=== PATIENT | female | born 1980 | race Caucasian/White ===

== ENCOUNTER 2016-07-10 04:02 | Inpatient (IN) | payer BC ==
[~2016-07-10] VITALS: Ht 160 cm; Wt 77.5 kg
[2016-07-10 00:45] VITALS: BP 129/59; PULSE 84; TEMP 37.1; O2SAT 93
[~2016-07-10 04:02] MED LIST: MTR600X PO; OXYC5TAB PO; PRENTAB26 PO
[2016-07-10] MEDS ORDERED: LACTATED RINGER'S 1000ML 1,000 ML IV SCH ×2 (04:45→22:23)
[2016-07-10] MEDS ORDERED: LACTATED RINGER'S 1000ML 1,000 ML IV PRN (04:45)
[2016-07-10] MEDS ORDERED: DOCU-94 PO (06:29)
[2016-07-10 06:36] VITALS: Ht 160 cm; Wt 77.5 kg
[2016-07-10 06:41] LABS: MEAN CELL VOLUME 88.8 fL (80-100); MEAN CORPUSCULAR HGB CONC 34.9 g/dl (32-36); MEAN PLATELET VOLUME 10.8 fL (7.4-10.4); PLATELET COUNT 146 K/uL (130-400); RED BLOOD COUNT 3.94 M/uL (4.2-5.4); WHITE BLOOD COUNT 9.88 K/uL (4.8-10.8)
--- NOTE | 2016-07-10 07:30 | HISTORY & PHYSICAL EXAMINATION ---
DATE OF ADMISSION: 07/10/2016 CHIEF COMPLAINT: Spontaneous rupture of membranes. HISTORY OF PRESENT ILLNESS: The patient is a 36-year-old 5, para 1 at 36 weeks and 3 days' gestation, who presents for a labor and delivery on the morning of 07/10/2016 with rupture of membranes that occurred at 02:00 a.m. with clear amniotic fluid noted. The patient does have a history of a prior section in 2013 secondary to failure to progress. She did reach complete dilation and pushed for 4 hours and delivered via primary section. This has been uncomplicated. We did discuss the risks of a trial of labor after section versus a repeat section along with the risks, benefits and alternatives. After a long discussion, she has opted to proceed with a trial of labor. She is currently 3 cm, 50% effaced, and -3 station. heart tones are category 1. She is GBS negative and she is axel every 2-3 minutes spontaneously. PAST MEDICAL HISTORY: She had 3 spontaneous miscarriages in 2012, 2014 and 2015. She had dilation and evacuations to all 3. PAST SURGICAL HISTORY: She had a breast augmentation in 2011, wisdom teeth removed and D\T\Es x3 and a primary section in December of 2013. SOCIAL HISTORY: The patient denies tobacco, alcohol or drug use. MEDICATIONS: vitamins and Colace 100 mg twice daily. ALLERGIES: No known drug allergies. LABS: Blood type is A positive, group B strep negative, rubella immune, hepatitis B surface antigen negative, RPR nonreactive, and HIV negative. PHYSICAL EXAMINATION: VITAL SIGNS: Blood pressure is 138/82, heart rate is 78, respiratory rate of 18, and temperature of 98.5. GENERAL: The patient is awake, alert and oriented x3. She is no acute distress. HEART: Regular rate and rhythm. LUNGS: Clear to auscultation bilaterally. ABDOMEN: Gravid uterus, appropriate for gestational age. Bowel sounds present x4. EXTREMITIES: No clubbing, cyanosis or calf tenderness. VAGINAL EXAM: She is 3 cm, 50% effaced, and -3 station. The baby was confirmed to be in the vertex position via bedside ultrasound. heart tones are category 1. ASSESSMENT AND PLAN: A 36-year-old 5, para 1 at 36 weeks and 3 days gestation, will be admitted to labor and delivery secondary to spontaneous rupture of membranes. She does have a history of prior section and is opting to proceed with a trial of labor after section. Risks, benefits and alternatives were discussed with the patient. Will augment labor as needed and anticipate vaginal delivery. MTDD
[2016-07-10] MEDS ORDERED: LACTATED RINGER'S 1000ML 500 ML IV PRN ×2 (12:19→16:20)
[2016-07-10] MEDS ORDERED: OXYTOCIN 30 UNITS/500ML NSS IV PRN (12:30)
[2016-07-10] MEDS ORDERED: EpHEDrine SULFATE INJ 50 MG/ML AMP ONE (13:48)
[2016-07-10] MEDS ORDERED: BUPIVACAINE 0.25% 30 ML VIAL ONE ×2 (13:48→18:09)
[2016-07-10] MEDS ORDERED: FENTANYL 2MCG/ML ROPIV 1.25MG/ML 100ML BAG EPI ONE (13:49)
[2016-07-10] MEDS ORDERED: FENTANYL CITRATE INJ 50 MCG/1 ML 2 ML VIAL ONE ×2 (13:49→18:09)
[2016-07-10] MEDS: LACTATED RINGER'S 1000ML 1,000 ML IV SCH ×2 (14:49→17:56)
[2016-07-10] MEDS ORDERED: NALOXONE HCL INJ 1 MG in SODIUM CHLORIDE 0.9% 1000ML 1,000 ML IV PRN (16:20)
[2016-07-10] MEDS ORDERED: DiphenhydrAMINE HCL 50 MG/ML VIAL IV PRN (16:30)
[2016-07-10] MEDS ORDERED: NALOXONE HCL INJ 0.4 MG/1 ML VIAL/CARP IV PRN (16:30)
[2016-07-10] MEDS ORDERED: FENTANYL 2MCG/ML ROPIV 1.25MG/ML 100ML BAG EPI PRN (16:30)
[2016-07-10] MEDS ORDERED: NALBUPHINE HCL INJ 10 MG/ML AMP IV PRN (16:30)
[2016-07-10] MEDS ORDERED: EpHEDrine SULFATE INJ 50 MG/ML AMP IV PRN (16:30)
[2016-07-10] MEDS ORDERED: ONDANSETRON INJ 2 MG/ML 2 ML VIAL IV PRN (16:30)
[2016-07-10] MEDS ORDERED: NURSING VERBAL MED ORDER ONE (18:30)
--- NOTE | 2016-07-10 18:43 | Anesthesiology Progress Note ---
Anesthesia Progress Note Date of Service Jul 10, 2016. Progress Notes Called by nursing 2/2 increasing labor pains. Pt stated having some R sided back and R lower abdominal pain with contractions. I administered 5mL of 0.125% bupivacaine and 50mcg of fentanyl through her epidural. VSS throughout. Pt stated having improved symptoms after medication administration.
[2016-07-10] MEDS ORDERED: AMPICILLIN INJ 2,000 MG in SODIUM CHLORIDE 0.9% 50ML 50 ML IV SCH (20:30)
[2016-07-10] MEDS: AMPICILLIN IV 2,000 MG in SODIUM CHLOR 0.9% AD-VAN 100ML 100 ML IV SCH (20:31)
[2016-07-10] MEDS ORDERED: CITRIC ACID/SODIUM CITRATE 15 ML UDC ONE (20:50)
[2016-07-10] MEDS ORDERED: GENTAMICIN INJ 100 MG in DEXTROSE 5% 100ML 100 ML IV ONE (21:00)
[2016-07-10] MEDS ORDERED: OXYTOCIN INJ 10 UNITS/ML VIAL ONE (21:16)
[2016-07-10] MEDS ORDERED: LIDOCAINE/EPINEPHRINE 2% 1:200,000 20 ML SDV ONE (21:16)
[2016-07-10] MEDS ORDERED: MoRPHine SULFATE PF 1 MG/ML 10 ML AMP/VIAL ONE (21:22)
[2016-07-10] MEDS ORDERED: ONDANSETRON INJ 2 MG/ML 2 ML VIAL ONE (21:24)
--- NOTE | 2016-07-10 22:21 | Anesthesiology Progress Note ---
Anesthesia Post Op Note Date & Time Jul 10, 2016 at 22:21 Vital Signs Pain Intensity: 0.0 Notes Mental Status: alert / awake / arousable, participated in evaluation Pt Amnestic to Procedure: Yes Nausea / Vomiting: adequately controlled Pain: adequately controlled Airway Patency, RR, SpO2: stable & adequate BP & HR: stable & adequate Hydration State: stable & adequate Neuraxial Anesthesia: was administered, sensory block is resolving Anesthetic Complications: no major complications apparent
--- NOTE | 2016-07-10 22:27 | [facility] Post Operative Brief Note ---
Immediate Operative Summary Operative Date Jul 10, 2016. Pre-Operative Diagnosis IUP; Failed ; arrest of descent; tachycardia Post-Operative Diagnosis Same Procedure(s) Performed Repeat caesarean section Delivery of live male child at [address] Corona Cash Applications Clerk Surgeon(s) Dr. Gordon Estimated Blood Loss 700cc Findings Male , apgars 8/10 Fluids (cc crystalloids) 200 ml LR Specimens Cord blood gases Placenta-exam Drains Guan 50 ml Anesthesia Epidural, Dr. Ingram Complication(s) None Disposition L&D
[2016-07-10] MEDS ORDERED: SUPERCREAM 0.870 % 15GM JAR EXT PRN (22:30)
[2016-07-10] MEDS ORDERED: MEPERIDINE HCL 25 MG/ML CARP IV PRN (22:30)
[2016-07-10] MEDS ORDERED: LANOLIN OINT EXT PRN ×2 (22:30)
[2016-07-10] MEDS ORDERED: HYDROCORTISONE ACETATE 25 MG SUPP PR PRN (22:30)
[2016-07-10] MEDS ORDERED: SENNA 8.6 MG TAB PO PRN (22:30)
[2016-07-10] MEDS ORDERED: MoRPHine SULFATE PF 1 MG/ML 10 ML AMP/VIAL EPI PRN (22:30)
[2016-07-10] MEDS ORDERED: NO NARCOTICS OR SEDATIVES SCH (22:30)
[2016-07-10] MEDS ORDERED: CONTINUE MEDICATION ONE (22:30)
[2016-07-10] MEDS ORDERED: BENZOCAINE 20% AER SPR 82.5 GM CAN EXT PRN (22:30)
[2016-07-10] MEDS ORDERED: MAGNESIUM HYDROXIDE SUSP 30 ML UDC PO PRN (22:30)
[2016-07-10] MEDS ORDERED: KETOROLAC TROMETHAMINE 30 MG/ML VIAL ONE (22:44)
--- NOTE | 2016-07-10 23:49 | OPERATIVE REPORT ---
DATE OF OPERATION: 07/10/2016 PREOPERATIVE DIAGNOSIS: The patient is a 36-year-old G2, P1-0-0-1, at 36 weeks and 3 days of gestation,history of prior Csection, presented with premature rupture of membranes, failed trial of labor after , arrest of descent in second stage, and tachycardia. POSTOPERATIVE DIAGNOSIS: Same. PROCEDURE: Repeat low transverse with Pfannenstiel skin incision. SURGEON: Dr. Dan. IMPLEMENTATION SPECIALIST PAYROLL: Dr. Gordon. ESTIMATED BLOOD LOSS: 700ml FLUIDS: 2000 mL of lactated Ringer's. DRAINS: Guan drained 50 mL of urine. ANESTHESIA: Epidural, Dr. Ingram. COMPLICATIONS: None. FINDINGS: Baby was a viable male infant, Apgars 8 and 10, delivered at 2116, and weight was 2860 grams. Baby was in cephalic presentation with asynclitic presentation. MATERNAL FINDINGS: Normal uterus, fallopian tubes and ovaries. DESCRIPTION OF PROCEDURE: The patient was taken to the operating room where epidural anesthesia was checked to be adequate. She was placed in dorsal supine position with a leftward tilt. She was prepared and draped in usual sterile fashion. A Pfannenstiel skin incision was made from the old scar and carried through to the underlying layer of fascia with Bovie. Fascia was incised in the midline, incision extended laterally with the help of Mendoza scissors. Lower aspect of the fascial incision was grasped with 2 Marky clamps, elevated, underlying rectus muscles were dissected off sharply with Mendoza scissors, and then upper aspect of the fascial incision was grasped with 2 Marky clamps, elevated, underlying rectus muscles were dissected off sharply with Mendoza scissors. Rectus muscles were in midline. Peritoneum was entered bluntly with fingers. Peritoneal incision was extended superiorly and inferiorly with good visualization of the bladder. Bladder blade was inserted. Vesicouterine peritoneum was identified, grasped with pickups, entered sharply with Metzenbaum scissors, and lower uterine segment was thinned but intact. It was incised in a transverse fashion. The incision was extended laterally with the help of fingers. Membranes were ruptured and it was clear fluid. The baby's head was brought from vaginal canal up to the incision, delivered without difficulty. Shoulders were delivered with minimal traction. Mouth and nose were suctioned. Cord was clamped x2 and cut, it was a 3-vessel cord. Then, baby was handed off to the awaiting automotive production worker, Dr. Stewart. Cord gases were obtained. Placenta was delivered manually, it was intact and complete. Uterus was exteriorized, cleared off all clots and debris. Bladder blade was inserted and the incision was checked to be extending minimally toward the lower uterine segment. The corners were identified, grasped with ring graspers, and then incision was repaired with 0 Vicryl in a running locked fashion. There was oozing on the right side of the corner. The bladder was then made sure to be retracted all the way down and then that bleeding was controlled with 0 Vicryl with [id number] stitches x2 and a second imbricating layer was done with 0 Vicryl in a running locked fashion. There was also bleeding on the left of the midline of the incision which was also controlled with 0 Vicryl with [id number] stitches x2 and then excellent hemostasis was achieved. Then, the uterus was anteflexed. Posterior cul-de-sac was identified and it was irrigated with warm normal saline and suctioned. The ureters were visualized and found to be peristalsing normally. The uterus was returned to the abdomen and pelvis was irrigated with warm normal saline and suctioned. Incision was checked to be hemostatic again. Between bladder reflection and the lower uterine segment, a Surgicel was placed to prevent any oozing. Then, parietal peritoneum was reapproximated with 3-0 Vicryl in a running locked fashion and rectus muscles were reapproximated with the same suture in a running fashion. The rectus fascia was reapproximated with 0 Vicryl in a running fashion starting from both corners and meeting in the midline. Subcuticular fat tissue was reapproximated with 3-0 Vicryl in a running fashion. Skin was closed with 4-0 Monocryl in a subcuticular fashion. The patient tolerated the procedure well. Sponge, lap, needle and instrument counts were correct x3. She was given 2 grams of ampicillin and 100 mg of gentamicin before surgery. She was taken to recovery room in stable condition. I attest to the content of the Intraoperative Record and any orders documented therein. Any exceptions are noted below. JOEL
[2016-07-11] VITALS (20 sets, daily range): BP systolic 95–129; BP diastolic 54–69; PULSE 69–85; TEMP 36.5–37.1; O2SAT 93–96
[2016-07-11] MEDS: OXYTOCIN INJ 20 UNITS in LACTATED RINGER'S 1000ML 1,000 ML IV SCH ×2 (00:48→12:11)
[2016-07-11] MEDS: AMPICILLIN IV 2,000 MG in SODIUM CHLOR 0.9% AD-VAN 100ML 100 ML IV SCH ×4 (03:18→20:00)
[2016-07-11] MEDS: KETOROLAC TROMETHAMINE 30 MG/ML VIAL IV. PRN ×2 (05:03→10:44)
[2016-07-11] MEDS: DEXTROSE 5% IV SCH ×3 (06:11→22:33)
[2016-07-11] MEDS: GENTAMICIN IV SCH ×3 (06:11→22:33)
[2016-07-11 07:42] LABS: BASO % 0.2 %; BASO ABS # 0.03 K/uL (0-0.2); COMPLETE YES; EOS % 0.5 %; HEMATOCRIT 30.2 % (37-47); IG% 0.7 %; LYMPH % 11.9 %; LYMPH ABS # 1.56 K/uL (1.2-3.4); MEAN CELL VOLUME 90.7 fL (80-100); MEAN CORPUSCULAR HEMOGLOBIN 31.2 pg (25-34); MEAN CORPUSCULAR HGB CONC 34.4 g/dl (32-36); MEAN PLATELET VOLUME 10.5 fL (7.4-10.4); MONO % 8.9 %; NEUT % 77.8 %; PLATELET COUNT 120 K/uL (130-400); RED BLOOD COUNT 3.33 M/uL (4.2-5.4); WHITE BLOOD COUNT 13.12 K/uL (4.8-10.8)
[2016-07-11] MEDS: FERROUS SULFATE 325 MG TAB PO SCH (08:00)
[2016-07-11] MEDS ORDERED: DOCUSATE SODIUM 100 MG CAP PO SCH (08:00)
[2016-07-11] MEDS: PRENATAL VITAMIN TAB PO SCH (08:00)
--- NOTE | 2016-07-11 08:03 | Surgery Progress Note ---
Surgery Progress Note Date of Service Jul 11, 2016. Subjective Post OP Day: 1 + ambulating, + diet, + feeling well, + flatus, + pain controlled Objective Vital Signs: Date Time Temp Pulse Resp B/P Pulse Ox O2 Delivery O2 Flow Rate FiO2 07/11/16 06:30 20 95 07/11/16 05:45 18 93 07/11/16 04:45 37.1 85 16 102/60 94 Room Air 07/11/16 04:45 16 94 07/11/16 02:45 16 94 07/11/16 01:45 16 94 07/11/16 00:45 37.1 84 18 129/59 93 Room Air 07/11/16 00:45 18 93 07/11/16 00:45 93 Room Air General Appearance: no apparent distress Abdomen: non tender, non distended, soft Incision(s): clean, dry, intact Extremities: non-tender, normal inspection, no pedal edema Laboratory Results: Results Past 24 Hours Test 07/11/16 07:15 Range/Units White Blood Count 13.12 4.8-10.8 K/uL Red Blood Count 3.33 4.2-5.4 M/uL Hemoglobin 10.4 12.0-16.0 g/dL Hematocrit 30.2 37-47 % Mean Corpuscular Volume 90.7 80-100 fL Mean Corpuscular Hemoglobin 31.2 25-34 pg Mean Corpuscular Hemoglobin Concent 34.4 32-36 g/dl Platelet Count 120 130-400 K/uL Mean Platelet Volume 10.5 7.4-10.4 fL Neutrophils (%) (Auto) 77.8 % Lymphocytes (%) (Auto) 11.9 % Monocytes (%) (Auto) 8.9 % Eosinophils (%) (Auto) 0.5 % Basophils (%) (Auto) 0.2 % Neutrophils # (Auto) 10.21 1.4-6.5 K/uL Lymphocytes # (Auto) 1.56 1.2-3.4 K/uL Monocytes # (Auto) 1.17 0.11-0.59 K/uL Eosinophils # (Auto) 0.06 0-0.5 K/uL Basophils # (Auto) 0.03 0-0.2 K/uL RDW Standard Deviation 45.6 36.4-46.3 fL RDW Coefficient of Variation 13.8 11.5-14.5 % Immature Granulocyte % (Auto) 0.7 % Immature Granulocyte # (Auto) 0.09 0.00-0.02 K/uL Assessment & Plan regular diet POD#1 advance diet and care
[2016-07-11 08:11] LABS: CREATININE 0.41 mg/dl (0.60-1.20)
[2016-07-11] MEDS: DOCUSATE SODIUM 100 MG CAP PO SCH ×3 (08:54→19:44)
[2016-07-11] MEDS: SIMETHICONE 80 MG CHEW PO SCH ×4 (08:54→19:44)
[2016-07-11] MEDS ORDERED: DIPHTHERIA/TETANUS/PERTUSSIS 0.5 ML SYR/VIAL IM. ONE (09:00)
[2016-07-11] MEDS ORDERED: MEASLES, MUMPS & RUBELLA VIRUS VIAL SQ. ONE (09:00)
[2016-07-11] MEDS ORDERED: GENTAMICIN CONSULT ACTIVE PRN (09:45)
--- NOTE | 2016-07-11 09:53 | Pharmacy Progress Note ---
Pharmacy Antibiotic Consult Date of Service: Jul 11, 2016. Pharmacy Dosing Scope Pharmacy is consulted to initiate gentamicin IV dosing therapy, order appropriate labs and adjust drug dose/frequency. Subjective The patient is a 36 year old female admitted on Jul 10, 2016 at 04:52. Objective Height (Feet): 5 Height (Inches): 3.00 Weight (Kilograms): 77.500 Lab Results (24hrs): Laboratory Tests Test 07/11/16 07:15 Creatinine 0.41 mg/dl White Blood Count 13.12 K/uL Red Blood Count 3.33 M/uL Hemoglobin 10.4 g/dL Hematocrit 30.2 % Mean Corpuscular Volume 90.7 fL Mean Corpuscular Hemoglobin 31.2 pg Mean Corpuscular Hemoglobin Concent 34.4 g/dl Platelet Count 120 K/uL Mean Platelet Volume 10.5 fL Neutrophils (%) (Auto) 77.8 % Lymphocytes (%) (Auto) 11.9 % Monocytes (%) (Auto) 8.9 % Eosinophils (%) (Auto) 0.5 % Basophils (%) (Auto) 0.2 % Neutrophils # (Auto) 10.21 K/uL Lymphocytes # (Auto) 1.56 K/uL Monocytes # (Auto) 1.17 K/uL Eosinophils # (Auto) 0.06 K/uL Basophils # (Auto) 0.03 K/uL Assessment & Plan Patient started on gentamicin for C section procedure ; pharmacy consulted to assist with dosing Gentamicin * Ordered 100 mg x 1 3/2 * Started on conventional AG dosing with gentamicin 95 mg (~1.5 mg/kg - based upon adj BW of 62.4 kg) every 8 hrs * Predicated peak based upon dose is ~5 mcg/ml (goal 5-7) and predicated trough 0.5 mcg/ml (goal <1 mcg/ml) * Estimated kinetics: ke~0.31, Crcl~186 (used 100 ml/min to calculate dose) * If to be continued >48 hrs will consider monitoring peak/trough Pharmacy will continue to follow and will adjust dose/frequency as necessary. Thank you
[2016-07-11] MEDS ORDERED: PROMETHAZINE HCL INJ 25 MG in SODIUM CHLORIDE 0.9% 50ML 50 ML IV PRN (15:30)
[2016-07-11] MEDS ORDERED: MEPERIDINE HCL 50 MG/ML CARP IV PRN (15:30)
[2016-07-11] MEDS ORDERED: MEPERIDINE HCL 75 MG/ML CARP IV PRN (15:30)
[2016-07-11] MEDS ORDERED: DiphenhydrAMINE HCL 50 MG/ML VIAL IV PRN (15:30)
[2016-07-11] MEDS ORDERED: DC INTRASPINAL MORPHINE PRN (15:30)
[2016-07-11] MEDS ORDERED: KETOROLAC TROMETHAMINE 30 MG/ML VIAL IV. PRN (15:30)
[2016-07-11] MEDS ORDERED: ONDANSETRON INJ 2 MG/ML 2 ML VIAL IV PRN (15:30)
[2016-07-11] MEDS ORDERED: ZOLPIDEM TARTRATE 5 MG TAB PO PRN (15:30)
[2016-07-11] MEDS: OXYCODONE/ACETAMINOPHEN 5-325 TAB PO PRN ×2 (15:42→20:18)
[2016-07-11] MEDS: IBUPROFEN 600 MG TAB PO PRN ×2 (15:42→20:17)
[2016-07-11] MEDS ORDERED: MAGNESIUM HYDROXIDE SUSP 30 ML UDC PO SCH (22:00)
[2016-07-11] MEDS ORDERED: BISACODYL 5 MG TABEC PO ONE (22:00)
[2016-07-12 00:10] VITALS: BP 105/57; PULSE 73; TEMP 36.7
[2016-07-12] MEDS: IBUPROFEN 600 MG TAB PO PRN ×4 (00:25→15:34)
[2016-07-12] MEDS: OXYCODONE/ACETAMINOPHEN 5-325 TAB PO PRN ×5 (00:26→19:40)
[2016-07-12] MEDS: AMPICILLIN IV 2,000 MG in SODIUM CHLOR 0.9% AD-VAN 100ML 100 ML IV SCH ×4 (02:19→21:01)
[2016-07-12] MEDS: DEXTROSE 5% IV SCH ×3 (05:51→22:13)
[2016-07-12] MEDS: GENTAMICIN IV SCH ×3 (05:51→22:13)
[2016-07-12 06:31] LABS: HEMATOCRIT 28.2 % (37-47)
[2016-07-12] MEDS: SIMETHICONE 80 MG CHEW PO SCH ×4 (07:35→20:00)
[2016-07-12] MEDS: DOCUSATE SODIUM 100 MG CAP PO SCH ×3 (07:35→19:39)
[2016-07-12] MEDS: PRENATAL VITAMIN TAB PO SCH (07:35)
[2016-07-12] MEDS: FERROUS SULFATE 325 MG TAB PO SCH (07:35)
[2016-07-12 08:30] VITALS: BP 107/59; PULSE 67; TEMP 36.3; O2SAT 97
--- NOTE | 2016-07-12 10:05 | Surgery Progress Note ---
Surgery Progress Note Date of Service Jul 12, 2016. 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, No vomiting Objective Vital Signs: Date Time Temp Pulse Resp B/P Pulse Ox O2 Delivery O2 Flow Rate FiO2 07/12/16 00:10 36.7 73 18 105/57 Room Air 07/12/16 00:10 Room Air 07/11/16 19:30 Room Air 07/11/16 19:30 36.5 75 20 104/69 Room Air 07/11/16 15:45 96 Room Air 07/11/16 15:43 36.7 74 18 96 Room Air 07/11/16 15:30 18 96 07/11/16 14:30 18 96 07/11/16 13:30 18 96 07/11/16 12:30 18 96 07/11/16 11:45 36.7 73 18 95/54 94 Room Air 07/11/16 11:30 18 96 07/11/16 10:30 20 96 General Appearance: WD/WN, no apparent distress Head: normocephalic, atraumatic Neck: supple, no adenopathy, thyroid normal, no JVD, no carotid bruits, trachea midline Respiratory/Chest: chest non-tender, lungs clear, normal breath sounds, no respiratory distress, no accessory muscle use Cardiovascular: regular rate, rhythm, no edema, no gallop, no JVD, no murmur Abdomen: normal bowel sounds, non tender, non distended, soft, no organomegaly , no pulsatile mass Incision(s): clean, dry, intact, no erythema, no drainage Extremities: normal range of motion, non-tender, normal inspection, no pedal edema, no calf tenderness, normal capillary refill, pelvis stable Laboratory Results: Results Past 24 Hours Test 07/12/16 06:13 Range/Units Hemoglobin 9.8 12.0-16.0 g/dL Hematocrit 28.2 37-47 % Assessment & Plan c/sec Day #2 pt doig well anticipate disch tomorrow
[2016-07-12 16:00] VITALS: BP 107/68; PULSE 77; TEMP 36.3; O2SAT 97
[2016-07-12] MEDS ORDERED: BISACODYL 10 MG SUPP PR PRN (22:30)
[2016-07-13] VITALS: BP 112/70; PULSE 76; TEMP 37.1; O2SAT 95
[2016-07-13] MEDS: AMPICILLIN IV 2,000 MG in SODIUM CHLOR 0.9% AD-VAN 100ML 100 ML IV SCH ×2 (02:31→08:02)
[2016-07-13] MEDS: OXYCODONE/ACETAMINOPHEN 5-325 TAB PO PRN ×3 (02:31→12:09)
[2016-07-13] MEDS: DEXTROSE 5% IV SCH (05:59)
[2016-07-13] MEDS: GENTAMICIN IV SCH (05:59)
[2016-07-13] MEDS: IBUPROFEN 600 MG TAB PO PRN ×2 (06:32→12:08)
--- NOTE | 2016-07-13 07:26 | Surgery Progress Note ---
Surgery Progress Note Date of Service Jul 13, 2016. Subjective Post OP Day: 3 + ambulating (+ve ), + diet (+tolerating ), + flatus (+ve ), + pain controlled ( +ve ), No SOB, No bowel movement, No chest pain, No complaints, No nausea, No using SOLE LAYER HAND, No vomiting Objective Vital Signs: Date Time Temp Pulse Resp B/P Pulse Ox O2 Delivery O2 Flow Rate FiO2 07/13/16 00:00 37.1 76 18 112/70 95 Room Air 07/13/16 00:00 95 Room Air 07/12/16 16:00 36.3 77 18 107/68 97 Room Air 07/12/16 16:00 97 Room Air 07/12/16 08:30 36.3 67 18 107/59 97 Room Air 07/12/16 08:30 97 Room Air General Appearance: WD/WN, no apparent distress Head: normocephalic, atraumatic Neck: supple, no adenopathy, thyroid normal, no JVD, no carotid bruits, trachea midline Respiratory/Chest: chest non-tender, lungs clear, normal breath sounds, no respiratory distress, no accessory muscle use Cardiovascular: regular rate, rhythm, no edema, no gallop, no JVD, no murmur Abdomen: normal bowel sounds, non tender, non distended, soft, no organomegaly , no pulsatile mass Incision(s): clean, dry, intact, no erythema, no drainage Extremities: normal range of motion, non-tender, normal inspection, no pedal edema, no calf tenderness, normal capillary refill, pelvis stable Assessment & Plan c/sec Day #3 pt sasha schwarz d/c home with instructions c/sec Day #2 pt sasha schwarz anticipate disch tomorrow
[2016-07-13] MEDS ORDERED: MTR600X PO (07:27)
[2016-07-13] MEDS ORDERED: OXYC-57 PO (07:27)
[2016-07-13] MEDS ORDERED: FRRS300 PO (07:27)
--- NOTE | 2016-07-13 07:29 | Discharge Instructions ---
Discharge Instructions Admission Reason for Admission: LABOR Discharge Discharge Diagnosis / Problem: postop Discharge Goals Goal(s): Routine recovery after surgery Activity Recommendations Activity Limitations: as noted below ACTIVITY RECOMMENDATIONS: * Gradual return to full activity over the next 2-3 weeks. * No lifting - nothing heavier than baby over the next 2-3 weeks. * Do not engage in vigorous exercise, sexual activity or sports until cleared by your physician. * Do not drive or operate any motorized equipment until cleared by your physician. * You may shower/bathe daily. BREAST CARE: If you are not breast feeding: * Wear a supportive bra 24 hours a day for one to two weeks. * Avoid stimulating your breasts and nipples as much as possible during the first few weeks after delivery. * When taking a shower, have the warm water hit your back, not breasts. * When your breasts feel full, apply ice packs. Usually three to four times a day helps ease the discomfort. * Take a mild pain medication (Tylenol/Motrin) when you are uncomfortable. If breast feeding: * Use breast milk to lubricate nipples. Lansinoh cream may be used for sore nipples. You do not need to remove cream prior to breast feeding. If using a different brand of cream, check the label for directions regarding removal of cream prior to nursing. * Wear a supportive bra. * If having problems with breasts or breast feeding, call a healthcare risk control consultant or your health care provider. OVER THE COUNTER MEDICATION: * For discomfort or pain, you may use Acetaminophen (Tylenol), Ibuprofen (Advil ), or Naproxen (Aleve) following the package directions. * For constipation you may use Colace following the package directions. SPECIAL CARE INSTRUCTIONS: When you are discharged from the hospital, it is important for you to follow the instructions listed below: * During the first week at home, you should be able to care for yourself and your baby. In addition, the usual light household activities are encouraged. * Limit your activities to the way you feel. Do not try to clean the house or move furniture. Be sensible. * If you actively engage in sports and have done so up until the time of your delivery, you may resume these activities as soon as you feel able. This may take up to one month or even longer. Use good judgment. * Continue to take your vitamins for at least six weeks after the of your baby. * Your diet need not be limited unless you were on a special diet before your delivery. Breast-feeding mothers need around 2500 calories per day and at least 64-80 ounces of fluid per day (8 to 10 glasses). * You should eat foods from the four major food groups. Crash diets or fad diets are to be avoided. Eating lean meats, fresh fruits and vegetables, low-fat dairy products, high fiber foods and a regular exercise program, will help you get back to your pre- weight without putting your health at risk. * Constipation is sometimes a problem after delivery. Take a mild laxative as needed. If breast feeding, Milk of Magnesia is acceptable to use. You may use a suppository or Fleets enema if no episiotomy. * A daily shower or tub bath is suggested. Be sure to thoroughly and gently dry the perineum. * A bloody vaginal discharge will usually continue until around four weeks post . A small amount of bleeding may continue for as long as six weeks. Vaginal discharge changes from the bright red bleeding after delivery to pink then brownish and finally yellowish-pink before becoming white and disappearing. * Bleeding may increase with activity. Your first period may come in 4-8 weeks. If you are breast feeding, your period may be delayed even longer. * [employer] (sex) can begin whenever both you and your partner feel comfortable and do not have any form of genital infection. It is recommended that you wait at least six weeks for internal and external healing to occur. If you have questions, please talk to your health care practitioner. A condom should be used to prevent infection and . * Foreplay, gentle intercourse and lubrication is very important the first several times to prevent pain. A water-based lubricant such as K-Y jelly or Astroglide may be used. * Tampons and/or Douching should be avoided until after six weeks check-up. * If you have RH negative blood and your baby is RH positive, you will receive RHOGAM by injection prior to discharge. The nurse will give you a card to keep with you that has the date and place that you received RHOGAM after delivery. * During your care, you had a Rubella screen done to check for the presence of rubella antibodies in your blood. If your test was negative, you will receive a Rubella vaccine prior to discharge. This vaccine may cause a fever, soreness at the injection site and flu-like symptoms. If these symptoms persist, notify your health care practitioner. is not advised for three months after a Rubella vaccine. * Verbalizes understanding of car seat law as reviewed with patient nursing. * Car Seat hand-out given and reviewed with patient by nursing. * Shaken baby information reviewed with patient by nursing. Call you doctor if: * Heavy bleeding (saturating several pads an hour) or passing clots the size of your fist. * A fever >101 degrees F (38.3 degrees C) on two occasions four hours apart and /or chills. * Unusual pain in the pelvic or vaginal areas. Pain should improve each day . * Call the doctor for any increased redness, drainage or swelling around the incision and any pain unrelieved by prescribed pain medication. * Any signs or symptoms of phlebitis (possible blood clots forming in the veins ): leg pain, warm, red or swollen area on leg. * "Baby Blues" lasting longer than two weeks. If you have any questions or concerns, call your health care practitioner at . FOLLOW-UP VISIT: * Incision check (staple removal) in 1 week. Please call doctor's office at to set up appointment. * Please call the office at to schedule a 6 week examination. It is important you keep this appointment. * It is important for you to make arrangements for either yearly or twice yearly check-ups thereafter. . Current Hospital Diet Patient's current hospital diet: Regular OB Diet Discharge Diet Recommended Diet: Regular Diet Procedures Procedures Performed: Repeat caesarean section Delivery of live male child at 2116 Pending Studies Studies pending at discharge: no Medical Emergencies . Who to Call and When: Medical Emergencies: If at any time you feel your situation is an emergency, please call [phone] immediately. . Non-Emergent Contact Non-Emergency issues call your: Specialist . . "Provider Documentation" section prepared by Xavier Diaz. VTE Core Measure Inpt VTE Proph given/why not?: Treatment not indicated
[2016-07-13 07:40] VITALS: BP 109/62; PULSE 63; TEMP 36.7
[2016-07-13] MEDS: SIMETHICONE 80 MG CHEW PO SCH (08:02)
[2016-07-13] MEDS: FERROUS SULFATE 325 MG TAB PO SCH (08:02)
[2016-07-13] MEDS: DOCUSATE SODIUM 100 MG CAP PO SCH (08:02)
[2016-07-13] MEDS: PRENATAL VITAMIN TAB PO SCH (08:02)
[2016-07-13 13:00] VITALS: BP_DIAS 62; PULSE 63; TEMP 36.7
--- NOTE | 2016-07-29 12:16 | DISCHARGE SUMMARY ---
DETAILS OF ADMISSION: The patient is a 36-year-old G5, P1-0-0-3-1 at 36 weeks and 3 days of gestation who was admitted on 07/10/2016 for premature rupture of membrane at 2:[address] Stark. She had a history of prior . She decided to try for labor and vaginal after delivery. She proceeded to fully dilation and pushed about 1 hour without any progress and heart rate happened to have tachycardia to 180s and 190s. Decision was made to proceed with repeat low transverse . The patient understood the risks and signed informed consent. The patient has repeat low transverse with Pfannenstiel skin incision. Surgeon myself, assistant project manager Dr. Gordon. See dictated OP note for details. The patient delivered a viable male infant, Apgars 8/9. Weight was 2860 grams. On postop period, the patient was doing well. Vital signs stable, afebrile. Urine output was adequate. On postop day #1 the patient was ambulating, vital signs stable, afebrile. Urine was adequate. The Guan was discontinued. She voided without problems. She ambulated, she passed gas, she tolerated regular diet. Her vital signs were stable, afebrile. Her physical exam was unremarkable. Her incision was clean, dry and intact. Her postop H\T\H was 10.4/30.2. She was continuously monitored. On postop day #2, the patient was doing well, tolerating regular diet and pain was under control with oral medication. Vital signs stable, afebrile. Physical exam was unremarkable. Her incision was clean, dry and intact. Her bleeding was minimal. Her repeat H\T\H was 9.8/28.2. She was continuously monitored. On postop day #3, the patient was doing well, ambulating, tolerating regular diet, no complaints. Vital signs stable, afebrile. Physical exam was unremarkable. Her incision was clean, dry and intact. Her abdomen is soft, nontender. Fundus was firm and bleeding was minimal. The patient desired to go home on postop day #3 07/13/2016. Instructions were given when to call. Prescriptions were written for iron sulfate, ibuprofen and Percocet for pain. She was to continue with Colace and multivitamin. Instructions were given when to call and all questions were answered. JOEL
== END 2016-07-13 13:00 | disposition home or self-care (01) | DRG 766 ==
LOC: C.LD 04:02 → C.OPB 04:02 → C.LD 04:52 → C.OPB 04:52 → C.OBG 07-11 00:44
PROVIDERS: ADMIT Obstetrics & Gynecology; ATTEND Obstetrics & Gynecology
PROC: 10D00Z1 Extraction of Products of Conception, Low, Open Approach (ICD-10-PCS; principal; 2016-07-10 20:53)
DX: O42.013 Preterm premature rupture of membranes, onset of labor within 24 hours of rupture, third trimester (principal); O34.211 Maternal care for low transverse scar from previous cesarean delivery; O62.1 Secondary uterine inertia; Z37.0 Single live birth; O76 Abnormality in fetal heart rate and rhythm complicating labor and delivery; Z3A.36 36 weeks gestation of pregnancy

== ENCOUNTER 2019-05-17 05:29 | Inpatient (IN) ==
--- NOTE | 2019-04-27 13:54 | PAT Medication Instructions ---
Medication Instructions Date of Service April 27, 2019 Home Medications PNV cmb#95-ferrous fumarate-FA [] 1 tab PO QAM docusate sodium [Stool Softener] 100 mg PO HS DO NOT take the morning of surgery PNV cmb#95-ferrous fumarate-FA [] 1 tab PO QAM Take evening before surgery docusate sodium [Stool Softener] 100 mg PO HS Other Notes If you have any questions please call us at [phone] or [phone] or [phone] or [phone]
--- NOTE | 2019-04-28 15:22 | Anesthesiology Consultation ---
Date of Service April 28, 2019 Assessment & Plan (1) Encounter for pre-operative examination: Chart Review Chart Review: Acceptable Risk for Surgery (pending pre op labs ([facility] 04/28)) and Patient seen in Pre Admission Testing Teaching & Discussion Instructed NPO after midnight before surgery, except medications with 15 cc of water. Medication instructions provided according to the PAT guidelines. History Surgery Operation Date: 05/17/19 07:30 Proposed Procedures p Section in LD - Jadon Dan MD Height/Weight Height: 5 ft 3 in Weight: 88.8 kg Allergies Allergy/AdvReac Type Severity Reaction Status Date / Time No Known Allergies Allergy NONE Verified 04/22/19 15:58 Medications Home Medications Medication Instructions Recorded Confirmed Last Taken PNV cmb#95-ferrous fumarate-FA 1 tab PO QAM 04/22/19 04/22/19 Unknown [] docusate sodium [Stool Softener] 100 mg PO HS 04/22/19 04/22/19 Unknown progesterone micronized 200 mg PO HS 04/28/19 04/28/19 Unknown [Prometrium] Past Medical History Medical History No known health problems Exercise / Class Metabolic Activity II 4-5 Yardwork/Stairs/Walk up hill Past Surgical History Surgical History Hx of arthroscopy of left knee Hx of breast augmentation Hx of section X2 Hx of wisdom tooth extraction Nausea and vomiting after administration of anesthetic agent Past Anesthesia History No Hx of Anesthesia Complications (OTHER THAN NAUSEA) and No Family Hx of Anesthesia Complications PATIENT WAS DRY-HEAVING DURING FIRST C/S. WAS PREMEDICATED DURING SECOND C/S, DID NOT HAVE NAUSEA. History of PONV No Hx of Motion Sickness and History of PONV (DURING first C/S) Social History Smoking Status: Never smoker Do You Dip or Chew Tobacco: No Hx Alcohol Use: No Hx Substance Use: No Review of Systems Pt denies any recent chest pain, shortness of breath, palpitations, cough, fever or URI. Physical Exam Vital Signs BP: 110/73 P: 93bpm SPO2: 95% RA T: 98.1 F R: 12 ENMT Mouth: + dental restorations (one crown); no chipped teeth and no loose teeth Thyromental Distance: < 3.5 Finger Breadths (3) Mallampati Class: II Neck normal visual inspection; neck extension not limited Respiratory normal respiratory effort Auscultation: lungs clear to auscultation bilaterally Cardiovascular Rate/Rhythm: regular rate and regular rhythm Heart Sounds: no murmur
[2019-04-28 16:36] LABS: Basophils # (auto) 0.03 K/uL (0-0.2); Basophils % (auto) 0.3 %; Eosinophils # (auto) 0.37 K/uL (0-0.5); Eosinophils % (auto) 3.2 %; Hematocrit (blood only) 36.9 % (37-47); Hemoglobin 12.6 g/dL (12.0-16.0); Immature Granulocytes # (auto) 0.33 K/uL (0.00-0.02); Immature Granulocytes % (auto) 2.9 %; Lymphocytes # (auto) 2.12 K/uL (1.2-3.4); Lymphocytes % (auto) 18.6 %; Mean Corpuscular Hemoglobin 31.5 pg (25-34); Mean Corpuscular Hgb Conc 34.1 g/dL (32-36); Mean Corpuscular Volume 92.3 fL (80-100); Mean Platelet Volume 10.9 fL (7.4-10.4); Monocytes # (auto) 0.87 K/uL (0.11-0.59); Monocytes % (auto) 7.6 %; Neutrophils % (auto) 67.4 %; Platelet Count 167 K/uL (130-400); RDW Coefficient of Variation 13.9 % (11.5-14.5); RDW Standard Deviation 46.7 fL (36.4-46.3); White Blood Count 11.42 K/uL (4.8-10.8)
[2019-04-28 16:45] LABS: Appearance Urine Clear (Clear); Bacteria Urine Automated Negative (Negative); Bilirubin Urine Negative (Negative); Blood Urine Negative (Negative); Cast Urine Automated 0 /lpf (0-5); Color Urine Yellow; Epithelial Cell Urine Auto >30 /lpf (0-5); Glucose Urine UA Negative (Negative); Ketones Urine Negative (Negative); Leukocyte Esterase Urine 2+ (Negative); Nitrite Urine Negative (Negative); Protein Urine Negative (Negative); RBC Urine Automated 0-4 /hpf (0-4); Specific Gravity Urine 1.015 (1.000-1.030); Urobilinogen Urine Negative (Negative); pH Urine 7.5 (4.5-7.5)
--- OUTSIDE RECORDS SUMMARY | 2019-05-17 05:33 | External Medical Summary | Continuity of Care Document ---
:1980 Author Name Marce Maxwell Address Unavailable Unavailable , Care Team Providers Name Role Phone [facility] M.DMarina Unavailable [email or web address], [email or web address] Unavailable Unavailable Problems Active medical history not documented Allergies and Adverse Reactions Allergy history not documented Medications Medications not documented Procedures Procedures not documented Immunizations Immunizations not documented Plan of Treatment Planned Observations Planned Goals not documented Results No Known Results Results not documented
[2019-05-17] MEDS ORDERED: LACTATED RINGER'S 1,000 ML IV SCH ×2 (05:45→06:00)
[2019-05-17] MEDS ORDERED: CITRIC ACID/SODIUM CITRATE 15 ML UDC PO SCH (06:00)
[2019-05-17] MEDS ORDERED: CEFAZOLIN 2000MG 2,000 MG/15 ML SYR IV SCH (06:00)
[2019-05-17] MEDS ORDERED: CEFAZOLIN 2,000 MG in SYRINGE 0 ML IV SCH (06:00)
[2019-05-17 06:10] LABS: Basophils # (auto) 0.04 K/uL (0-0.2); Basophils % (auto) 0.4 %; Eosinophils # (auto) 0.41 K/uL (0-0.5); Eosinophils % (auto) 3.6 %; Hematocrit (blood only) 38.6 % (37-47); Hemoglobin 12.8 g/dL (12.0-16.0); Immature Granulocytes # (auto) 0.26 K/uL (0.00-0.02); Immature Granulocytes % (auto) 2.3 %; Lymphocytes # (auto) 2.38 K/uL (1.2-3.4); Mean Corpuscular Hemoglobin 31.1 pg (25-34); Mean Corpuscular Hgb Conc 33.2 g/dL (32-36); Mean Corpuscular Volume 93.9 fL (80-100); Mean Platelet Volume 10.7 fL (7.4-10.4); Monocytes # (auto) 0.95 K/uL (0.11-0.59); Monocytes % (auto) 8.4 %; Neutrophils # (auto) 7.29 K/uL (1.4-6.5); Neutrophils % (auto) 64.3 %; Platelet Count 150 K/uL (130-400); RDW Coefficient of Variation 14.1 % (11.5-14.5); RDW Standard Deviation 48.1 fL (36.4-46.3); Red Blood Count 4.11 M/uL (4.2-5.4); White Blood Count 11.33 K/uL (4.8-10.8)
[2019-05-17] MEDS ORDERED: fentaNYL citrate 100 MCG/2 ML VIAL ONE (07:00)
[2019-05-17] MEDS ORDERED: MoRPHine SULFATE PF 1 MG/ML 10 ML AMP/VIAL ONE (07:00)
--- NOTE | 2019-05-17 07:20 | History & Physical Bridge Note ---
Date of Service May 17, 2019 History & Physical Bridge Note I have examined the patient, reviewed the History & Physical and in the interval since the performance of the History & Physical I have noted the following changes of clinical significance: no changes noted
[2019-05-17] MEDS ORDERED: ONDANSETRON INJ 2 MG/ML 2 ML VIAL IV PRN (07:59)
[2019-05-17] MEDS ORDERED: NALOXONE HCL 0.4 MG/1 ML VIAL/CARP IV PRN (07:59)
[2019-05-17] MEDS ORDERED: LACTATED RINGER'S 500 ML IV PRN (07:59)
[2019-05-17] MEDS ORDERED: ePHEDrine sulfate 50 MG/ML AMP IV PRN (07:59)
[2019-05-17] MEDS ORDERED: DiphenhydrAMINE HCL 50 MG/ML VIAL IV PRN (07:59)
[2019-05-17] MEDS ORDERED: MoRPHine SULFATE 2 MG/ML CARP IV PRN (07:59)
[2019-05-17] MEDS ORDERED: NALOXONE HCL 0.08 MG in SYRINGE 1.8 ML IV PRN (07:59)
[2019-05-17] MEDS ORDERED: MEPERIDINE HCL 25 MG/ML CARP IV PRN (07:59)
[2019-05-17] MEDS ORDERED: NALOXONE HCL 1 MG in SODIUM CHLORIDE 0.9% 1000ML 1,000 ML IV PRN (07:59)
[2019-05-17] MEDS ORDERED: NALBUPHINE HCL INJ 10 MG/ML AMP IV PRN (07:59)
[2019-05-17] MEDS ORDERED: MoRPHine SULFATE PF 1 MG/ML 10 ML AMP/VIAL INT SPINAL ONE (07:59)
[2019-05-17] MEDS ORDERED: NO NARCOTICS OR SEDATIVES SCH (08:00)
[2019-05-17] MEDS ORDERED: SODIUM CHLORIDE 0.9% 1000ML 1,000 ML IV SCH (08:00)
[2019-05-17] MEDS ORDERED: ONDANSETRON INJ 2 MG/ML 2 ML VIAL ONE (08:00)
[2019-05-17] MEDS ORDERED: OXYTOCIN 10 UNITS/ML VIAL ONE (08:00)
[2019-05-17] MEDS ORDERED: DC INTRASPINAL MORPHINE SCH (08:00)
[2019-05-17] MEDS ORDERED: PHENYLEPHRINE 100MCG/ML 5ML SYR ONE (08:00)
[2019-05-17 08:02] LABS: Albumin Level 2.3 gm/dl (3.4-5.0); BUN Creatinine Ratio 13.2 (10-20); Calcium 8.9 mg/dl (8.5-10.1); Creatinine Clr Calc Pharmacy 144.2 ml/min; Est GFR (African American) 136.1; Est GFR (Non-African American) 117.5; Potassium 4.1 mmol/L (3.5-5.1)
[2019-05-17 08:05] LABS: Albumin Globulin Ratio 0.6 (0.9-2); Bilirubin,Total 0.2 mg/dl (0.2-1); Globulin 3.9 gm/dl (2.5-4.0); Total Protein 6.2 gm/dl (6.4-8.2)
--- NOTE | 2019-05-17 09:19 | Anesthesiology Progress Note ---
Date of Service May 17, 2019 Anesthesia Post Procedure Vital Signs Vital Signs: Temp Pulse Resp BP Pulse Ox 05/17/19 09:15 86 93 05/17/19 09:14 81 143/86 H 05/17/19 09:13 85 98 05/17/19 07:31 74 146/92 H 05/17/19 07:20 84 144/90 H 05/17/19 05:45 36.4 C L 87 18 136/89 Transfer of Care Handoff Completed per policy Notes Mental Status: alert / awake / arousable and participated in evaluation Patient Amnestic to Procedure: No Nausea / Vomiting: adequately controlled Pain: adequately controlled Airway Patency, RR, SpO2: stable & adequate BP & HR: stable & adequate Hydration State: stable & adequate Neuraxial Anesthesia: was administered and sensory block is resolving Anesthetic Complications: no major complications apparent and Pt Satisfied with anesthetic care
--- NOTE | 2019-05-17 09:21 | Post Operative Brief Note ---
Immediate Post Op Note v1 Date of Surgery May 17, 2019 Pre & Post Diagnosis Operation Date: 05/17/19 07:30 Pre-Op Diagnosis: PREVIOUS SECTION X 2; PT DESIRES REPEAT SECTION AND BILATERAL TUBAL LIGATION Post-Op Diagnosis: SAME PREOP I identified the patient and participated in the time-out.: Yes Procedure Operation Date: 05/17/19 07:30 Actual Procedures p Section in LD; Bilateral Tubal Ligation; Live Male at 0812 - Jadon Dan MD Surgeon Jadon Dan MD Data Entry Associate ARNAUD Domínguez Estimated Blood Loss 600 Findings Consistent with Post-Op Diagnosis Drains Guan Catheter (650 ML) Anesthesia Type Spinal Complications none Disposition Accompanied Patient To Recovery: Yes Disposition: L&D
[2019-05-17] MEDS: KETOROLAC 30 MG/ML VIAL IV PRN ×3 (10:13→22:15)
--- NOTE | 2019-05-17 10:58 | Operative Report ---
DATE OF OPERATION: 05/17/2019 PREOPERATIVE DIAGNOSIS: The patient is a 39-year-old G3, P2-0-0-2 at 39.1 weeks of gestation with prior history of two C-sections and desires repeat section and permanent sterilization with bilateral tubal ligation. POSTOPERATIVE DIAGNOSIS: The patient is a 39-year-old G3, P2-0-0-2 at 39.1 weeks of gestation with prior history of two C-sections and desires repeat section and permanent sterilization with bilateral tubal ligation.. PROCEDURE: Repeat low transverse with Pfannenstiel skin incision and bilateral tubal sterilization with [place] method. SURGEON: Jadon Dan MD LEAD PRESSMAN R[employer] GRAVURE PRINTING: ARNAUD Griffin. ESTIMATED BLOOD LOSS: 600 mL. COMPLICATIONS: None. DRAINS: Guan catheter drained 650 mL of clear urine. ANESTHESIA: Spinal, Dr. Frazier. FINDINGS: Baby was a viable male infant delivered at 08:12 a.m., in cephalic position. Apgars were 9/9, weight was 3840 grams. MATERNAL FINDINGS: Normal uterus, fallopian tubes and ovaries. DESCRIPTION OF PROCEDURE: The patient was taken to the operating room where spinal anesthesia was given without difficulty. She was placed in dorsal supine position with a leftward tilt. She was prepared and draped in usual sterile fashion. A Pfannenstiel skin incision was made from the old scar, carried through to the underlying layer of fascia with the Bovie. Fascia was incised in the midline and incision was extended laterally with the help of Mendoza scissors. Upper aspect of the fascial incision was grasped with 2 Marky clamps, elevated. Underlying rectus muscles were dissected off sharply with Mendoza scissors and the lower aspect of the fascial incision was grasped with 2 Marky clamps, elevated. Underlying rectus muscles were dissected off sharply with Mendoza scissors. Rectus muscles were in the midline and incision was extended superiorly and inferiorly with good visualization of the bladder and bladder blade was inserted. Vesicouterine peritoneum was identified, grasped with pickups, entered sharply with Metzenbaum scissors. Bladder flap was created digitally and bladder blade was reinserted. Lower uterine segment was incised in transverse fashion, incision was extended laterally with the help of fingers. Membranes were ruptured. Clear fluid was obtained. Baby's head was delivered without difficulty. There was a nuchal cord, which was reduced and then shoulders were delivered with minimal traction. Mouth and nose were suctioned. Cord was clamped x2 and cut at 1 minute delay and baby was handed to the waiting pediatric team with Dr. Turpin. Then the placenta was delivered manually as intact and complete. Uterus was exteriorized, cleared of all clots and debris. The uterine incision was repaired with 0 Vicryl in a running locked fashion and there was a pumping close to the left corner. It was controlled with [id number] stitches x2. Excellent hemostasis was achieved and the second imbricating layer was placed with 0 Vicryl in a running fashion. Then cul-de-sac was irrigated with warm normal saline and suctioned. Normal tubes, ovaries and posterior uterus were noted. The right fallopian tube was identified, grasped with 2 [place] clamps and the mesosalpinx was entered with 2-0 plain catgut and then this tube was tied and made a loop around the clamps and another tie was placed under the first tie and then about 3 cm of fallopian tube was excised and sent to pathology. The base of the tube was hemostatic. Attention was turned to the left fallopian tube, which was grasped with 2 Homar clamps and the mesosalpinx was entered with a 2-0 plain catgut and the tube was tied around the clamps, made a loop and a second tie was placed under the first tie. Again, 3-cm fallopian tube was excised and sent to the pathology. The base of the tube was intact and hemostatic. Then the uterine incision was inspected to be hemostatic again. Uterus was returned to the patient's abdomen and pelvis was irrigated with warm normal saline and suctioned. The incision and the Fallopian tubes were also checked to be again hemostatic. Then parietal peritoneum with rectus muscles were reaproximated in a running locked fashion with 3-0 Vicryl and then the rectus fascia was reapproximated with 0 Vicryl in a running fashion starting from both corners meeting in the midline. The skin was closed in a subcuticular fashion with 4-0 Monocryl. The patient tolerated the procedure well. Sponge, lap, needle count was correct x3. No complications happened and I was present during whole procedure. She received 2 grams of Cefazolin before surgery. She was taken to L&D in stable condition. I attest to the content of the Intraoperative Record and any orders documented therein. Any exceptions are noted below. MTDD
[2019-05-17] MEDS: OXYTOCIN 20 UNITS in LACTATED RINGER'S 1,000 ML IV SCH ×2 (12:51→20:20)
[2019-05-18] MEDS ORDERED: MEASLES, MUMPS & RUBELLA VIRUS VIAL SQ ONE (02:16)
[2019-05-18] MEDS ORDERED: SUPERCREAM 0.870% 15 GM JAR EXT PRN (02:16)
[2019-05-18] MEDS ORDERED: HYDROCORTISONE ACETATE 25 MG SUPP PR PRN (02:16)
[2019-05-18] MEDS ORDERED: MAGNESIUM HYDROXIDE SUSP 30 ML UDC PO PRN (02:16)
[2019-05-18] MEDS ORDERED: DiphenhydrAMINE HCL 50 MG/ML VIAL IV PRN (02:16)
[2019-05-18] MEDS ORDERED: SENNA 8.6 MG TAB PO PRN (02:16)
[2019-05-18] MEDS ORDERED: ONDANSETRON INJ 2 MG/ML 2 ML VIAL IV PRN (02:16)
[2019-05-18] MEDS ORDERED: BENZOCAINE 20% AER SPR 82.5 GM CAN EXT PRN (02:16)
[2019-05-18] MEDS ORDERED: DIPHTHERIA/TETANUS/PERTUSSIS 0.5 ML SYR/VIAL IM ONE (02:16)
[2019-05-18] MEDS ORDERED: PROMETHAZINE HCL 25 MG in SODIUM CHLORIDE 0.9% 50 ML IV PRN (02:16)
[2019-05-18] MEDS ORDERED: LACTATED RINGER'S 1,000 ML IV SCH (02:30)
[2019-05-18] MEDS ORDERED: KETOROLAC 30 MG/ML VIAL IV PRN (02:42)
[2019-05-18] MEDS: SIMETHICONE 80 MG CHEW PO SCH ×4 (08:34→20:50)
[2019-05-18] MEDS: FERROUS SULFATE 325 MG TAB PO SCH (08:35)
[2019-05-18] MEDS: PRENATAL VITAMIN 1 TAB PO SCH (08:35)
[2019-05-18] MEDS: OXYCODONE/ACETAMINOPHEN 5mg/325mg TAB PO PRN ×4 (08:35→20:56)
[2019-05-18] MEDS: IBUPROFEN 600 MG TAB PO PRN ×4 (08:35→20:57)
[2019-05-18] MEDS: DOCUSATE SODIUM 100 MG CAP PO SCH ×2 (08:35→20:51)
--- NOTE | 2019-05-18 08:39 | Communication Note ---
Date of Service: May 18, 2019 s/p SAB for csec.Pt has been up and ambulating. no c/o H/A.no apparent anesthetic sequelae.
--- NOTE | 2019-05-18 12:01 | Surgery Progress Note ---
Date of Service May 18, 2019 Subjective POD#1 doing well passing gas some incisional pain Physical Exam Constitutional: WD/WN, vitals as above comfortable abdomen soft with some mild abdominal tenderness with palpation incision clean dry and intact neg edema neg Viri's will increase diet and activity Results & Data Vital Signs (Past 12 Hours) Vital Signs Temp Pulse Resp BP Pulse Ox 05/18/19 07:55 36.7 C 77 20 99/58 L 05/18/19 04:30 36.8 C 71 17 102/57 L 97 05/18/19 02:41 17 98 05/18/19 01:45 17 98 05/18/19 00:54 17 98 05/18/19 00:00 17 98 Laboratory Results Laboratory Results - last 72 hr 05/17/19 05/17/19 05/17/19 06:01 06:01 07:34 WBC 11.33 H RBC 4.11 L Hgb 12.8 Hct 38.6 MCV 93.9 MCH 31.1 MCHC 33.2 RDW Std Deviation 48.1 H RDW Coeff of Wily 14.1 Plt Count 150 MPV 10.7 H Immature Gran % (Auto) 2.3 Neut % (Auto) 64.3 Lymph % (Auto) 21.0 [place] % (Auto) 8.4 Eos % (Auto) 3.6 Baso % (Auto) 0.4 Immature Gran # (Auto) 0.26 H Neut # (Auto) 7.29 H Lymph # (Auto) 2.38 [place] # (Auto) 0.95 H Eos # (Auto) 0.41 Baso # (Auto) 0.04 Sodium 138 Potassium 4.1 Chloride 106 Carbon Dioxide 26 Anion Gap 6.0 BUN 7 Creatinine 0.56 L Est Cr Clr Drug Dosing 144.2 Est GFR ( Amer) 136.1 Est GFR (Non-Af Amer) 117.5 BUN/Creatinine Ratio 13.2 Glucose 86 Calcium 8.9 Total Bilirubin 0.2 AST 24 ALT 24 Alkaline Phosphatase 118 H Lactate Dehydrogenase Total Protein 6.2 L Albumin 2.3 L Globulin 3.9 Albumin/Globulin Ratio 0.6 L Blood Type A Positive Antibody Screen NEGATIVE 05/17/19 07:34 WBC RBC Hgb Hct MCV MCH MCHC RDW Std Deviation RDW Coeff of Wily Plt Count MPV Immature Gran % (Auto) Neut % (Auto) Lymph % (Auto) [place] % (Auto) Eos % (Auto) Baso % (Auto) Immature Gran # (Auto) Neut # (Auto) Lymph # (Auto) [place] # (Auto) Eos # (Auto) Baso # (Auto) Sodium Potassium Chloride Carbon Dioxide Anion Gap BUN Creatinine Est Cr Clr Drug Dosing Est GFR ( Amer) Est GFR (Non-Af Amer) BUN/Creatinine Ratio Glucose Calcium Total Bilirubin AST ALT Alkaline Phosphatase Lactate Dehydrogenase 178 Total Protein Albumin Globulin Albumin/Globulin Ratio Blood Type Antibody Screen
[2019-05-19] MEDS: OXYCODONE/ACETAMINOPHEN 5mg/325mg TAB PO PRN ×6 (04:42→23:38)
[2019-05-19] MEDS: IBUPROFEN 600 MG TAB PO PRN ×6 (04:43→23:38)
[2019-05-19 06:25] LABS: Basophils # (auto) 0.02 K/uL (0-0.2); Basophils % (auto) 0.2 %; Eosinophils # (auto) 0.33 K/uL (0-0.5); Eosinophils % (auto) 2.7 %; Hemoglobin 9.5 g/dL (12.0-16.0); Immature Granulocytes # (auto) 0.22 K/uL (0.00-0.02); Immature Granulocytes % (auto) 1.8 %; Lymphocytes # (auto) 1.76 K/uL (1.2-3.4); Lymphocytes % (auto) 14.3 %; Mean Corpuscular Hemoglobin 31.5 pg (25-34); Mean Corpuscular Hgb Conc 33.9 g/dL (32-36); Mean Corpuscular Volume 92.7 fL (80-100); Mean Platelet Volume 10.5 fL (7.4-10.4); Monocytes # (auto) 1.04 K/uL (0.11-0.59); Monocytes % (auto) 8.4 %; Neutrophils # (auto) 8.96 K/uL (1.4-6.5); Neutrophils % (auto) 72.6 %; Platelet Count 136 K/uL (130-400); RDW Coefficient of Variation 14.6 % (11.5-14.5); RDW Standard Deviation 49.1 fL (36.4-46.3); Red Blood Count 3.02 M/uL (4.2-5.4); White Blood Count 12.33 K/uL (4.8-10.8)
[2019-05-19] MEDS: SIMETHICONE 80 MG CHEW PO SCH ×4 (08:42→20:18)
[2019-05-19] MEDS: FERROUS SULFATE 325 MG TAB PO SCH (08:43)
[2019-05-19] MEDS: DOCUSATE SODIUM 100 MG CAP PO SCH ×2 (08:43→20:18)
[2019-05-19] MEDS: PRENATAL VITAMIN 1 TAB PO SCH (08:43)
--- NOTE | 2019-05-19 09:20 | Obstetrical Progress Note ---
Date of Service May 19, 2019 Assessment & Plan (1) delivery delivered: C/sec day 2 Pt doing well dish home tomorrow Subjective Ambulation: ambulating normally Voiding: no voiding problems Passing Gas:: Yes Diet Tolerance:: clear liquids Lochia:: Small Feeding Type:: breast feeding Review of Systems All systems reviewed & are unremarkable except as noted in HPI & below Physical Exam Constitutional WD/WN, vitals as above well developed and well nourished Eyes PERRL, conjunctivae normal, anicteric sclerae ENMT external ear and nose normal, oropharynx normal Neck trachea midline, no thyromegaly Respiratory normal respiratory effort, lungs clear to auscultation Cardiovascular RRR, no murmur, no edema Chest (Breasts) normal inspection/palpation of breasts Gastrointestinal (Abdomen) normal bowel sounds, soft, nontender, no hepatosplenomegaly Musculoskeletal no cyanosis or clubbing, extremities motor strength 5/5 Skin no rashes, warm and dry + incision (Clean,dry and intact) Neurologic patellar DTR's 2+ bilat, sensation intact Psychiatric A+Ox3, euthymic affect Genitourinary normal external appearance Lymphatic no cervical or axillary lymphadenopathy Results & Data Vital Signs (Past 12 Hours) Vital Signs Temp Pulse Resp BP Pulse Ox 05/18/19 23:15 36.7 C 74 17 110/63 95
[2019-05-19] MEDS ORDERED: bisacodyL 5 MG TABEC PO SCH (20:00)
[2019-05-20] MEDS ORDERED: bisacodyL 10 MG SUPP PR PRN (02:16)
[2019-05-20] MEDS: IBUPROFEN 600 MG TAB PO PRN ×2 (05:00→08:40)
[2019-05-20] MEDS: OXYCODONE/ACETAMINOPHEN 5mg/325mg TAB PO PRN ×2 (05:01→08:41)
[2019-05-20 07:09] LABS: Hematocrit (blood only) 29.1 % (37-47); Hemoglobin 9.7 g/dL (12.0-16.0)
[2019-05-20] MEDS: PRENATAL VITAMIN 1 TAB PO SCH (08:40)
[2019-05-20] MEDS: FERROUS SULFATE 325 MG TAB PO SCH (08:40)
[2019-05-20] MEDS: SIMETHICONE 80 MG CHEW PO SCH ×2 (08:40→12:59)
[2019-05-20] MEDS: DOCUSATE SODIUM 100 MG CAP PO SCH (08:40)
--- NOTE | 2019-05-20 10:31 | Surgery Progress Note ---
Date of Service May 20, 2019 Subjective doing well tolerating diet passing gas ambulating Physical Exam Constitutional: WD/WN, vitals as above comfortable incision clean dry and intact no edema neg Viri's for d/c home Results & Data Vital Signs (Past 12 Hours) Vital Signs Temp Pulse Resp BP 05/19/19 23:25 37.1 C 71 16 126/74 Laboratory Results 04/28/19 04/28/19 04/28/19 15:40 15:40 15:40 WBC 11.42 H RBC 4.00 L Hgb 12.6 Hct 36.9 L MCV 92.3 MCH 31.5 MCHC 34.1 RDW Std Deviation 46.7 H RDW Coeff of Wily 13.9 Plt Count 167 MPV 10.9 H Immature Gran % (Auto) 2.9 Neut % (Auto) 67.4 Lymph % (Auto) 18.6 [place] % (Auto) 7.6 Eos % (Auto) 3.2 Baso % (Auto) 0.3 Immature Gran # (Auto) 0.33 H Neut # (Auto) 7.70 H Lymph # (Auto) 2.12 [place] # (Auto) 0.87 H Eos # (Auto) 0.37 Baso # (Auto) 0.03 Sodium Potassium Chloride Carbon Dioxide Anion Gap BUN Creatinine Est Cr Clr Drug Dosing Est GFR ( Amer) Est GFR (Non-Af Amer) BUN/Creatinine Ratio Glucose Calcium Total Bilirubin AST ALT Alkaline Phosphatase Lactate Dehydrogenase Total Protein Albumin Globulin Albumin/Globulin Ratio Urine Color Yellow Urine Appearance Clear Urine pH 7.5 Ur Specific [place] 1.015 Urine Protein Negative Urine Glucose (UA) Negative Urine Ketones Negative Urine Blood Negative Urine Nitrite Negative Urine Bilirubin Negative Urine Urobilinogen Negative Ur Leukocyte Esterase 2+ H Urine WBC (Auto) 1-5 Urine RBC (Auto) 0-4 U Hyaline Cast (Auto) 0 U Epithel Cells (Auto) >30 H Urine Bacteria (Auto) Negative Blood Type A Positive Antibody Screen NEGATIVE 05/17/19 05/17/19 05/17/19 06:01 06:01 07:34 WBC 11.33 H RBC 4.11 L Hgb 12.8 Hct 38.6 MCV 93.9 MCH 31.1 MCHC 33.2 RDW Std Deviation 48.1 H RDW Coeff of Wily 14.1 Plt Count 150 MPV 10.7 H Immature Gran % (Auto) 2.3 Neut % (Auto) 64.3 Lymph % (Auto) 21.0 [place] % (Auto) 8.4 Eos % (Auto) 3.6 Baso % (Auto) 0.4 Immature Gran # (Auto) 0.26 H Neut # (Auto) 7.29 H Lymph # (Auto) 2.38 [place] # (Auto) 0.95 H Eos # (Auto) 0.41 Baso # (Auto) 0.04 Sodium 138 Potassium 4.1 Chloride 106 Carbon Dioxide 26 Anion Gap 6.0 BUN 7 Creatinine 0.56 L Est Cr Clr Drug Dosing 144.2 Est GFR ( Amer) 136.1 Est GFR (Non-Af Amer) 117.5 BUN/Creatinine Ratio 13.2 Glucose 86 Calcium 8.9 Total Bilirubin 0.2 AST 24 ALT 24 Alkaline Phosphatase 118 H Lactate Dehydrogenase Total Protein 6.2 L Albumin 2.3 L Globulin 3.9 Albumin/Globulin Ratio 0.6 L Urine Color Urine Appearance Urine pH Ur Specific [place] Urine Protein Urine Glucose (UA) Urine Ketones Urine Blood Urine Nitrite Urine Bilirubin Urine Urobilinogen Ur Leukocyte Esterase Urine WBC (Auto) Urine RBC (Auto) U Hyaline Cast (Auto) U Epithel Cells (Auto) Urine Bacteria (Auto) Blood Type A Positive Antibody Screen NEGATIVE 05/17/19 05/19/19 05/20/19 07:34 06:06 06:49 WBC 12.33 H RBC 3.02 L Hgb 9.5 L 9.7 L Hct 28.0 L 29.1 L MCV 92.7 MCH 31.5 MCHC 33.9 RDW Std Deviation 49.1 H RDW Coeff of Wily 14.6 H Plt Count 136 MPV 10.5 H Immature Gran % (Auto) 1.8 Neut % (Auto) 72.6 Lymph % (Auto) 14.3 [place] % (Auto) 8.4 Eos % (Auto) 2.7 Baso % (Auto) 0.2 Immature Gran # (Auto) 0.22 H Neut # (Auto) 8.96 H Lymph # (Auto) 1.76 [place] # (Auto) 1.04 H Eos # (Auto) 0.33 Baso # (Auto) 0.02 Sodium Potassium Chloride Carbon Dioxide Anion Gap BUN Creatinine Est Cr Clr Drug Dosing Est GFR ( Amer) Est GFR (Non-Af Amer) BUN/Creatinine Ratio Glucose Calcium Total Bilirubin AST ALT Alkaline Phosphatase Lactate Dehydrogenase 178 Total Protein Albumin Globulin Albumin/Globulin Ratio Urine Color Urine Appearance Urine pH Ur Specific [place] Urine Protein Urine Glucose (UA) Urine Ketones Urine Blood Urine Nitrite Urine Bilirubin Urine Urobilinogen Ur Leukocyte Esterase Urine WBC (Auto) Urine RBC (Auto) U Hyaline Cast (Auto) U Epithel Cells (Auto) Urine Bacteria (Auto) Blood Type Antibody Screen
--- NOTE | 2019-05-23 08:45 | Discharge Summary ---
DETAILS OF ADMISSION: The patient is a 39-year-old G3, P2-0-0-2 at 39 weeks and 1 day of gestation with a prior history of 3 C-sections. She desired repeat and permanent sterilization. She was admitted on 05/17/2019 for scheduled repeat and bilateral tubal ligation. Her surgery was uncomplicated. She delivered a viable male infant on the morning of 05/17/2019. See dictated op note for details. On postop period, the patient was doing well. Vital signs stable, afebrile. Urine output was good. Her physical exam was unremarkable. Abdomen was soft, nontender. Fundus was firm. Bleeding was minimal. Incision was clear. On postop day #1, Guan was discontinued. She was advanced to regular diet. She was ambulated. She started passing gas. She was . Vital signs stable, afebrile. On postop #2, the patient was doing well. Vital signs stable, afebrile. Physical exam was unremarkable. Abdomen was soft, nontender, nondistended and her H and H was 9.7/29.1. Postoperative day #3, 05/20/2019. She was doing well. She wanted to go home. Instructions were given when to call. Prescriptions were written for pain. She is to be seen in the office in a week for incision check.
== END 2019-05-20 13:29 | disposition home or self-care (01) | DRG 785 ==
LOC: 4S1 05:29 → EDSTATUS 07:30 → 4S2 11:45
PROC: M.PPTLD (2019-05-17 07:30)